=== PATIENT | male | born 1930 | race Caucasian/White ===

== ENCOUNTER 2017-05-28 16:16 | Emergency (ER) | payer MEDICARE, BC ==
--- NOTE | 2017-05-28 16:42 | UC ---
Skin Complaint HPI - HPI Summary HPI Summary: bee sting left palm 1 hr ago + swelling, numbness of the left 2nd and 3rd finger no cough, no sob - History of Current Complaint Chief Complaint: [employer] Time Seen by Provider: 05/28/17 16:33 Stated Complaint: LEFT HAND BEE STING Hx Obtained From: Patient Onset/Duration: Sudden Onset, Lasting Hours - 1, Still Present Timing: Constant Onset Severity: Mild Current Severity: Mild Location: Hand (Left) - palm Character: Swelling, Pruritus, Redness, Raised Aggravating: Touch Alleviating: Nothing Associated Signs & Symptoms: Positive: Numbness - left 2nd and 3rd fingers. Negative: Nausea, Vomiting - Allergy/Home Medications Allergies/Adverse Reactions: Allergies Allergy/AdvReac Type Severity Reaction Status Date / Time Acetaminophen [From Percocet] Allergy Hives Verified 05/28/17 16:30 Oxycodone [From Percocet] Allergy Hives Verified 05/28/17 16:30 Home Medications: Home Medications Allopurinol TAB* [Zyloprim 100 MG TAB*] 100 mg PO DAILY 05/28/17 [History Confirmed 05/28/17] Amitriptyline TAB* [Elavil TAB*] 10 mg PO BEDTIME 05/28/17 [History Confirmed ] Calcitriol CAP* [Rocaltrol CAP*] 0.25 mcg PO DAILY 05/28/17 [History Confirmed 05/28/17] Furosemide TAB* [Lasix TAB*] 20 mg PO DAILY 05/28/17 [History Confirmed 05/28/17 ] Primidone TAB(*) [Mysoline TAB(*)] 50 mg PO DAILY 05/28/17 [History Confirmed ] Ranitidine TAB (NF) [Zantac TAB (NF)] 1 tab PO DAILY 05/28/17 [History Confirmed 05/28/17] Simvastatin [Zocor 5 MG-] 20 mg PO DAILY 05/28/17 [History Confirmed 05/28/17] Tamsulosin CAP* [Flomax CAP*] 0.4 mg PO DAILY 05/28/17 [History Confirmed ] Topiramate TAB(*) [Topamax 25 MG tab] 50 mg PO BEDTIME 05/28/17 [History Confirmed 05/28/17] Review of Systems Constitutional: Negative Skin: Negative Eyes: Negative ENT: Negative Respiratory: Negative Cardiovascular: Negative All Other Systems Reviewed And Are Negative: Yes PMH/Surg Hx/FS Hx/Imm Hx Cardiovascular History: Cardiac Disease, Hypertension - Surgical History Surgical History: Yes Surgery Procedure, Year, and Place: THYROID, CERVICAL FUSION , CATARACTS, BILAT KNEE REPLACEMENTS - Family History Known Family History: Negative: Diabetes - Social History Alcohol Use: None Substance Use Type: None Smoking Status (MU): Never Smoked Tobacco Physical Exam Triage Information Reviewed: Yes Appearance: Well-Appearing, No Pain Distress, Well-Nourished Vital Signs: Initial Vital Signs Temp 98.7 F 05/28/17 16:25 Pulse 77 05/28/17 16:25 Resp 16 05/28/17 16:25 BP 115/52 05/28/17 16:25 Pulse Ox 100 05/28/17 16:25 Vital Signs Reviewed: Yes Eyes: Positive: Conjunctiva Clear ENT: Positive: Normal ENT inspection, Hearing grossly normal, Pharynx normal Neck: Positive: Supple, Nontender, No Lymphadenopathy Respiratory: Positive: Chest non-tender, Lungs clear, Normal breath sounds Cardiovascular: Positive: RRR, No Murmur, Pulses Normal Musculoskeletal Exam: Normal Musculoskeletal: Positive: Strength Intact, ROM Intact, No Edema Neurological: Positive: Alert, Muscle Tone Normal Skin: Positive: Other - left hand / palm : + mild erythema, mild swelling, good ROM Course/Dx - Diagnoses Provider Diagnoses: bee sting left hand Discharge - Discharge Plan Condition: Stable Disposition: HOME Patient Education Materials: Insect Bite or Sting (ED) Referrals: Prashanth Brian MD [Primary Care Provider] - If Needed Additional Instructions: use ice for 10 min 3 x per day for 2 days take Benadryl 25 mg as needed
[2017-05-28 16:48] VITALS: BP 115/52
== END 2017-05-28 16:48 | disposition home or self-care (01) ==
LOC: UCCORT 16:16
DX: T63.441A Toxic effect of venom of bees, accidental (unintentional), initial encounter (principal); M79.89 Other specified soft tissue disorders; R20.0 Anesthesia of skin; Y92.9 Unspecified place or not applicable; I51.9 Heart disease, unspecified; I10 Essential (primary) hypertension; Z96.653 Presence of artificial knee joint, bilateral; Z98.49 Cataract extraction status, unspecified eye; Z88.6 Allergy status to analgesic agent; Z88.5 Allergy status to narcotic agent
CPT/HCPCS: 99211; G0463